=== PATIENT | male | born 1950 | race Caucasian/White ===

== ENCOUNTER 2019-07-24 05:58 | Day surgery (SDC) | payer OTHER, MEDICARE ==
--- NOTE | 2019-07-03 13:44 | HP ---
DATE OF ADMISSION: 07/24/2019 DATE OF DICTATION: 05/02/2019 DATE OF SURGERY: 07/24/2019 REASON FOR ADMISSION: Recurrent right inguinal hernia. BRIEF HISTORY: This is a 67-year-old gentleman whom I had met in June 2018 for left groin pain. The patient developed pain in his left groin after doing multiple sit-ups. On physical examination at that time, I did not appreciate any hernias, and the patient was reassured and placed on the physical therapy regimen. At this present time, the patient states the pain in the left groin is resolved, and he has had no issues. He presents to the office now with complaint of having a recurrent right inguinal hernia since he noticed a bulge in the right groin. He also has pain in the area. He has had no change in bowel habits. PAST MEDICAL HISTORY: No coronary artery disease, hypertension, or diabetes. PAST SURGICAL HISTORY: Patient has had left shoulder and elbow surgery and knee surgery. MEDICATION: Avastatin and vitamins. ALLERGIES: None. SOCIAL HISTORY: He is a mina. He does not smoke nor drink. PHYSICAL EXAMINATION: General: Patient examined in the erect and supine position. Abdomen: Soft, nontender, nondistended. Genitourinary: He has no obvious findings in the left groin; however, there is some laxity noted. The left scrotum and testicles are within normal limits. On the right side, he has an obvious recurrent right inguinal hernia. He has a right inguinal scar. The hernia is reducible in the supine position. The right scrotum and testicles within normal limits. IMPRESSION/PLAN: Recurrent right inguinal hernia, history of left groin pain: This is a 67-year-old gentleman with an obvious recurrent right inguinal hernia. At this time he is symptomatic from this hernia, and therefore I would recommend a laparoscopic repair of his recurrent right inguinal hernia. At the time of laparoscopy, I should examine the left side as well, since he had episodic pain in this region approximately a year ago and will rule out for recurrent left inguinal hernia based on physical examination. If a hernia is seen, it will be repaired. If no hernia is seen on the left, a piece of mesh will be left in direct inguinal space for reinforcement. The indications, alternatives, and complications of the procedure discussed at length. Questions answered. Will plan to obtain written consent the day of surgery. Merlene STOCKTON [id number] cc: Dr. Eulalio Stevenson
[2019-07-16 13:32] VITALS: BMI 22.6
[2019-07-24] MEDS ORDERED: TAMSULOSIN HCL 0.4 MG CAP ONE (06:43)
[2019-07-24] MEDS ORDERED: MIDAZOLAM HCL 2 MG/2 ML SINGLE DOSE VIAL ONE ×2 (06:49→07:22)
[2019-07-24] MEDS ORDERED: BUPIVACAINE HCL/PF 0.5% (5 MG/ML) 30 ML VIAL IJ ONE (06:49)
[2019-07-24] MEDS ORDERED: fentaNYL CITRATE 250 MCG/5 ML VIAL ONE (07:22)
[2019-07-24] MEDS ORDERED: ROCURONIUM BROMIDE 50 MG/5 ML SYRINGE ONE (07:22)
[2019-07-24] MEDS ORDERED: SUCCINYLCHOLINE CHLORIDE 200 MG/10 ML SYRINGE ONE (07:22)
[2019-07-24] MEDS ORDERED: PROPOFOL 20 ML ONE ×2 (07:22)
[2019-07-24] MEDS ORDERED: ceFAZolin SODIUM 1 GM VIAL ONE (07:23)
[2019-07-24] MEDS ORDERED: ONDANSETRON 4 MG/2 ML VIAL ONE (07:23)
[2019-07-24] MEDS ORDERED: LIDOCAINE HCL 2% JELLY (5 ML/TUBE) ONE (07:23)
[2019-07-24] MEDS ORDERED: KETOROLAC TROMETHAMINE 30 MG/1 ML VIAL ONE (07:23)
[2019-07-24] MEDS ORDERED: LIDOCAINE HCL/PF 2% SDV 5ML VIAL ONE (07:23)
[2019-07-24] MEDS ORDERED: DEXAMETHASONE SOD PHOSPHATE 4 MG/1 ML VIAL ONE (07:23)
[2019-07-24] MEDS ORDERED: ePHEDrine SULFATE 50 MG/1 ML AMPULE ONE (08:06)
[2019-07-24] MEDS ORDERED: GLYCOPYRROLATE 0.2 MG/1 ML VIAL ONE (08:39)
[2019-07-24] MEDS ORDERED: NEOSTIGMINE METHYLSULFATE 0.5 MG/ML - 10 ML MDV ONE (08:40)
[2019-07-24] MEDS ORDERED: oxyCODONE HCL 5 MG TABLET PO PRN ×2 (09:49)
[2019-07-24] MEDS ORDERED: ONDANSETRON 4 MG/2 ML VIAL IVPUSH PRN (09:49)
[2019-07-24] MEDS ORDERED: LACTATED RINGERS SOLUTION 1,000 ML IV SCH (10:00)
[2019-07-24 10:49] VITALS: TEMP 97.6
[2019-07-24] MEDS ORDERED: oxyCODONE HCL 5 MG TABLET ONE (11:13)
[2019-07-24 14:32] VITALS: BP 140/62; PULSE 66
--- NOTE | 2019-07-24 16:12 | OP ---
DATE OF OPERATION: 07/24/2019 PREOPERATIVE DIAGNOSIS: Recurrent right inguinal hernia. POSTOPERATIVE DIAGNOSIS: Recurrent right direct inguinal hernia, left indirect inguinal hernia. PROCEDURE: Laparoscopic repair of recurrent right inguinal hernia with mesh, laparoscopic repair of left indirect inguinal hernia with mesh. SURGEON: Sanket Jauregui MD SERVICE ADMINISTRATOR: Jim Linn MD ANESTHESIA: Don Daniel MD (general). ESTIMATED BLOOD LOSS: Minimal. SPECIMEN: None. INDICATION FOR PROCEDURE: This is a 68-year-old gentleman with a recurrent right inguinal hernia. It is causing a progressive bulge in the area and now he wished to have this repaired. Patient identified and appropriately positioned on the operating room table, placed under general anesthesia, the abdomen prepped and draped in the usual sterile fashion with ChloraPrep. An infraumbilical incision was made, deepened to the subcutaneous tissue. The fascia of the rectus muscle on the right identified, divided sharply, and the muscles split under direct vision, a dissector balloon followed by structural balloon placed. Also under direct vision, a suprapubic 11-mm port was placed. The following structures in the right side identified: Pubic tubercle, Kin's ligament, inferior epigastric vessels, spermatic cord, and lateral abdominal wall. During this dissection, the patient was noted to have an incarcerated recurrent direct inguinal hernia containing fat. The fat was reduced back in the preperitoneal space with blunt dissection. The cord was then skeletonized and there was no true indirect inguinal hernia sac beyond the internal ring. This sac was off the cord structures further to be reduced back into the preperitoneal space. A 5.5 x 6 piece of Versatex mesh was keyhole placed through the port site. The mesh wrapped around the cord structures laterally to reconstruct the internal ring. Laterally the mesh was anchored to the anterior abdominal wall and lateral abdominal wall. Medially, the mesh was anchored to anterior abdominal wall, pubic tubercle, and Kin's ligament. Upon completion of the right side, similar structures on the left side identified. On the left side, the patient was noted to have no direct component. He had a small indirect inguinal hernia, which was reduced back in the preperitoneal space with blunt dissection. Another 5.5 x 6 piece of Versatex mesh was keyhole placed through the superior port site. The mesh wrapped around the cord structures laterally to reconstruct the internal ring. Laterally the mesh well overlapped in the midline. Anchored to the anterior abdominal wall, pubic tubercle, and Kin's ligament. The preperitoneal space was desufflated under direct vision. The operative field was examined and noted to be hemostatic. The mesh used was Versatex 15 x 15 cut to the appropriate size, anchoring system was AbsorbaTack. The fascia at both port sites was approximated with interrupted 0 Vicryl suture. All skin closed with 4-0 Biosyn followed by Dermabond. At the conclusion of the case, sponge count was correct. ATTESTATION: Brief operative note handwritten on a preprinted form. [facility] queried prior to giving any narcotics. Merlene STOCKTON [id number] cc: Eugene Beaver MD
== END 2019-07-24 13:30 | disposition home or self-care (01) ==
LOC: FASU 05:58
PROVIDERS: ATTEND Surgery
PROC: 0YUA4JZ Supplement Bilateral Inguinal Region with Synthetic Substitute, Percutaneous Endoscopic Approach (ICD-10-PCS; principal; 2019-07-24 08:00)
DX: K40.91 Unilateral inguinal hernia, without obstruction or gangrene, recurrent (principal); K40.90 Unilateral inguinal hernia, without obstruction or gangrene, not specified as recurrent
CPT/HCPCS: 94760